=== PATIENT | female | born 1980 | race Caucasian/White ===

== ENCOUNTER 2019-04-01 13:25 | Emergency (ER) | payer BC ==
[2019-04-01 13:49] VITALS: BP 160/91; PULSE 102
[2019-04-01] MEDS ORDERED: Sodium Chloride 0.9% 10 ML Syringe FLUSH PRN ×2 (13:51→15:35)
[2019-04-01] MEDS ORDERED: Diatrizoate Meglumine/Diatrizoate Sodium 37% 120 ML Bottle PO ONE (15:35)
[2019-04-01] MEDS ORDERED: Iopamidol 612 MG/ML 100 ML Bottle IVPUSH ONE (15:35)
--- NOTE | 2019-04-01 15:37 | EDM.PDOC ---
ED HPI GENERAL MEDICAL PROBLEM - General Chief Complaint: Abdominal Pain Stated Complaint: LOW ABDOMINAL PAIN, HBP,HIGH PULSE SENT BY HERNANDEZ Time Seen by Provider: 04/01/19 13:29 Source of Information: Reports: Patient History Limitations: Reports: No Limitations - History of Present Illness INITIAL COMMENTS - FREE TEXT/NARRATIVE: The patient presents from the walk in clinic for generalized abdominal pain. This has been an ongoing problem for a couple of months. She also has been fatigued. She saw her doctor for this and she had an EGD done on the 16 of March. Everything with that looked good. She woke up this morning with more pain and it is in the RLQ. She also had a temp of 101. She also had some hematuria. She has nausea at times. She has no fever or chills. She has no cough, congestion, or runny nose. She has no chest pain or shortness of breath. She still has her gallbladder and appendix. She did have a hysterectomy a few years ago. She still has her ovaries. She has no dysuria. She had labs and a UA done at [place] and she was sent here for a CT of her abdomen and pelvis. Onset: Gradual Duration: Week(s): Location: Reports: Abdomen Quality: Reports: Sharp Severity: Moderate Improves with: Reports: None Worsens with: Reports: None Associated Symptoms: Reports: Nausea/Vomiting. Denies: Chest Pain, Cough, Fever /Chills, Headaches, Shortness of Breath Bilateral Abdomen Pain Score (Numeric/FACES): 4 - Related Data Allergies Allergy/AdvReac Type Severity Reaction Status Date / Time No Known Allergies Allergy Verified 06/05/16 22:44 Home Meds: Home Meds Cholecalciferol (Vitamin D3) [Vitamin D] 2 tab PO DAILY 06/05/16 [History] Acetaminophen [Tylenol] 1 - 2 tab PO ASDIRECTED PRN 06/06/16 [History] L.acidoph,Paracasei, B.lactis [Probiotic] 1 cap PO DAILY 06/06/16 [History] Albuterol [Ventolin HFA] 2 puff INH Q4H PRN 04/01/19 [History] Cetirizine HCl [Allergy Relief] 10 mg PO DAILY PRN 04/01/19 [History] Hydrocodone/Acetaminophen [Hydrocodon-Acetaminophen 5-325] 1 - 2 each PO Q6HR PRN #20 tablet 04/01/19 [Rx] Progesterone, Micronized [Progesterone] 100 mg PO ASDIRECTED 04/01/19 [History] Pseudoephedrine [Sudogest] 30 mg PO Q4HR PRN 04/01/19 [History] Past Medical History HEENT History: Reports: Allergic Rhinitis, Other (See Below) - Past Surgical History HEENT Surgical History: Reports: Adenoidectomy, Oral Surgery, Tonsillectomy GI Surgical History: Reports: EGD Female Surgical History: Reports: Hysterectomy Social & Family History - Family History Family Medical History: Noncontributory - Tobacco Use Smoking Status *Q: Never Smoker Second Hand Smoke Exposure: No - Caffeine Use Caffeine Use: Reports: Coffee Other Caffeine Use: rarely - Recreational Drug Use Recreational Drug Use: No - Living Situation & Occupation Living situation: Reports: Single, Alone Occupation: Employed ED ROS GENERAL - Review of Systems Review Of Systems: See Below Constitutional: Reports: Fatigue. Denies: Fever, Chills HEENT: Reports: No Symptoms Respiratory: Reports: No Symptoms Cardiovascular: Reports: No Symptoms Endocrine: Reports: No Symptoms GI/Abdominal: Reports: Abdominal Pain, Nausea. Denies: Diarrhea, Vomiting : Reports: No Symptoms ED EXAM, GI/ABD - Physical Exam Exam: See Below Exam Limited By: No Limitations General Appearance: Alert, No Apparent Distress Ears: Normal External Exam Nose: Normal Inspection Head: Atraumatic, Normocephalic Neck: Normal Inspection Respiratory/Chest: No Respiratory Distress, Lungs Clear, Normal Breath Sounds Cardiovascular: Regular Rate, Rhythm, No Edema, No Murmur GI/Abdominal Exam: Soft, No Organomegaly, No Mass, Tender (Moderate generalized tenderness) Extremities: Normal Inspection Neurological: Alert, Oriented, No Motor/Sensory Deficits Course - Vital Signs Last Recorded V/S: Last Vital Signs Temp 99 F 04/01/19 13:34 Pulse 102 H 04/01/19 13:34 Resp 18 04/01/19 13:34 BP 160/91 H 04/01/19 13:34 Pulse Ox 94 L 04/01/19 13:34 - Orders/Labs/Meds Orders: Active Orders 24 hr Category Date Time Status Peripheral IV Care [RC] . DIRECTED Care 04/01/19 13:51 Active Abdomen Pelvis w Cont [CT] Stat Exams 04/01/19 13:51 Taken Sodium Chloride 0.9% [Saline Flush] Med 04/01/19 13:51 Active 10 ml FLUSH ASDIRECTED PRN Sodium Chloride 0.9% [Saline Flush] Med 04/01/19 15:35 Active 10 ml FLUSH ONETIME PRN Durable Medical Equipment for Discharge [DME for Oth 04/01/19 16:06 Ordered Discharge] [COMM] Stat Peripheral IV Insertion Adult [OM.PC] Routine Oth 04/01/19 13:51 Ordered Medication Orders Sodium Chloride (Saline Flush) 10 ml FLUSH ASDIRECTED PRN PRN Reason: Keep Vein Open Last Admin: 04/01/19 14:03 Dose: 10 ml Sodium Chloride (Saline Flush) 10 ml FLUSH ONETIME PRN PRN Reason: IV FLUSH Last Admin: 04/01/19 15:48 Dose: 10 ml Meds: Medications Generic Name Dose Route Start Last Admin Trade Name Freq PRN Reason Stop Dose Admin Sodium Chloride 10 ml 04/01/19 13:51 04/01/19 14:03 Saline Flush FLUSH 10 ml ASDIRECTED PRN Administration Keep Vein Open Sodium Chloride 10 ml 04/01/19 15:35 04/01/19 15:48 Saline Flush FLUSH 10 ml ONETIME PRN Administration IV FLUSH Discontinued Medications Generic Name Dose Route Start Last Admin Trade Name Freq PRN Reason Stop Dose Admin Diatrizoate Meglum/Diatrizoate Sod 120 ml 04/01/19 15:35 04/01/19 15:48 Gastrografin 37% PO 04/01/19 15:36 90 ml ONETIME ONE Administration Iopamidol 100 ml 04/01/19 15:35 04/01/19 15:48 Isovue-300 (61%) IVPUSH 04/01/19 15:36 100 ml ONETIME ONE Administration - Re-Assessments/Exams Free Text/Narrative Re-Assessment/Exam: 04/01/19 15:36 I ordered an IV saline lock and a CT of her abdomen and pelvis with IV and oral contrast. 04/01/19 17:30 Her WBC was slightly elevated at 11.6. Her CMP looks good. Her UA shows some blood but no UTI. Her CT came back and it shows free fluid in pelvis with associated right adnexal cystic focus of 5cm. Findings could represent recently ruptured hemorrhagic cyst. Incomplete assessment of appendix. I will have her follow up with Dr Robbins and give her something for pain. Departure - Departure Time of Disposition: 17:35 Disposition: Home, Self-Care 01 Condition: Good Clinical Impression: Right ovarian cyst - Discharge Information *PRESCRIPTION DRUG MONITORING PROGRAM REVIEWED*: No *COPY OF PRESCRIPTION DRUG MONITORING REPORT IN PATIENT KARLA: No Prescriptions: Hydrocodone/Acetaminophen [Hydrocodon-Acetaminophen 5-325] 1 - 2 each PO Q6HR PRN #20 tablet PRN Reason: Pain Referrals: Ute Jean Baptiste PA [Primary Care Provider] - 1 Week Anais Robbins MD [Physician] - 1 Week Forms: ED Department Discharge Additional Instructions: Take motrin or tylenol for pain. If that does not help, try the hydrocodone. Follow up with Dr Robbins this week. Please return if you are worse. - My Orders Last 24 Hours: My Active Orders 04/01/19 13:51 Peripheral IV Care [RC] . DIRECTED Abdomen Pelvis w Cont [CT] Stat Sodium Chloride 0.9% [Saline Flush] 10 ml FLUSH ASDIRECTED PRN Peripheral IV Insertion Adult [OM.PC] Routine 04/01/19 15:35 Sodium Chloride 0.9% [Saline Flush] 10 ml FLUSH ONETIME PRN 04/01/19 16:06 Durable Medical Equipment for Discharge [DME for Discharge] [COMM] Stat - Assessment/Plan Last 24 Hours: My Active Orders 04/01/19 13:51 Peripheral IV Care [RC] . DIRECTED Abdomen Pelvis w Cont [CT] Stat Sodium Chloride 0.9% [Saline Flush] 10 ml FLUSH ASDIRECTED PRN Peripheral IV Insertion Adult [OM.PC] Routine 04/01/19 15:35 Sodium Chloride 0.9% [Saline Flush] 10 ml FLUSH ONETIME PRN 04/01/19 16:06 Durable Medical Equipment for Discharge [DME for Discharge] [COMM] Stat
--- NOTE | 2019-04-02 09:12 | CT ---
CT abdomen and pelvis Technique: Multiple axial sections were obtained from above the dome of the diaphragm inferiorly through the pubic symphysis. Intravenous and oral contrast was utilized. Delayed images were also obtained from above the kidneys inferiorly through the pubic symphysis. Intravenous and oral contrast was utilized. Comparison: No prior abdominal imaging is available. Findings: Visualized lung bases show nothing acute. Liver contains no focal abnormality. Spleen appears within normal limits. Pancreas is within normal limits. Cyst noted within the right kidney measuring 2.7 cm. This cyst shows some calcifications but otherwise has normal Hounsfield unit measurements of fluid and is most likely benign. No additional abnormality is seen within the kidneys. Contrast is noted within both ureters. No ureteral dilatation or ureteral obstruction is seen. Pancreas appears within normal limits. Gallbladder contains no calcified gallstones. Aorta shows no aneurysm. No retroperitoneal adenopathy or mesenteric abnormalities are seen. Cyst noted within the right ovary measuring around 4.0 cm in size. There is some free fluid being noted within the pelvis most likely representing cyst leakage. No pelvic adenopathy is seen. Appendix is visualized and is felt to be normal. No inflammatory change is seen. No bowel dilatation is identified. Bone window settings were reviewed which showed no acute osseous abnormality. There is a hemangioma within T12 which is a benign lesion. Impression: 1. 4.0 cm cyst within the right ovary with free fluid within the pelvis most likely representing cyst leakage. Recommend follow-up pelvic ultrasound study in 3-4 months to make sure cyst disappears. 2. Other findings believed to be incidental as described above. No other acute finding is seen. Diagnostic code #3 This report was dictated in [place] Standard Time I agree with preliminary report issued by [employer] (ad report finalized on 04/01/19, 5:57 PM Central Time)
== END 2019-04-01 18:00 | disposition home or self-care (01) ==
LOC: JD.ED 13:25
DX: N83.201 Unspecified ovarian cyst, right side (principal)
CPT/HCPCS: 74177; 99284; Q9963; Q9967

== ENCOUNTER 2019-04-20 21:13 | Emergency (ER) | payer BC ==
[2019-04-20 21:32] VITALS: BP 146/108; PULSE 97
--- NOTE | 2019-04-20 22:15 | EDM.PDOC ---
ED HPI GENERAL MEDICAL PROBLEM - General Chief Complaint: Abdominal Pain Stated Complaint: ABDOMINAL PAIN Time Seen by Provider: 04/20/19 21:18 Source of Information: Reports: Patient History Limitations: Reports: No Limitations - History of Present Illness INITIAL COMMENTS - FREE TEXT/NARRATIVE: This is a 39-year-old female. Long history of generalized abdominal pain. Have a history of a hysterectomy secondary to very large fibroids that caused urinary retention. She recently had an EGD that was normal and a celiac biopsy was negative. She is generally fatigued and has been worked up and found to have a low vitamin D for which she takes vitamin D now. This morning apparently she felt a pop in her upper abdomen she was at work and she was having gastric pain and may be some right upper quadrant pain into her back. She is also having generalized abdominal pain and right lower quadrant pain where she was diagnosed with a right ovarian cyst that was leaking and this was found on April [address] scan. She thinks she has had some blood on her underwear possibly from her urine since she has had a hysterectomy and possibly a documented fever of 101 today. Due to the increasing generalized abdominal pain she comes to the ER for evaluation. She does complain of nausea but no vomiting she does not have any history of diarrhea or constipation. She has had no cough and no congestion. Treatments CASING BLOWER: Reports: Acetaminophen, NSAIDS Abdomen Pain Score (Numeric/FACES): 7 - Related Data Allergies Allergy/AdvReac Type Severity Reaction Status Date / Time No Known Allergies Allergy Verified 06/05/16 22:44 Home Meds: Home Meds Cholecalciferol (Vitamin D3) [Vitamin D] 2 tab PO DAILY 06/05/16 [History] Acetaminophen [Tylenol] 1 - 2 tab PO ASDIRECTED PRN 06/06/16 [History] L.acidoph,Paracasei, B.lactis [Probiotic] 1 cap PO DAILY 06/06/16 [History] Albuterol [Ventolin HFA] 2 puff INH Q4H PRN 04/01/19 [History] Cetirizine HCl [Allergy Relief] 10 mg PO DAILY PRN 04/01/19 [History] Hydrocodone/Acetaminophen [Hydrocodon-Acetaminophen 5-325] 1 - 2 each PO Q6HR PRN #20 tablet 04/01/19 [Rx] Progesterone, Micronized [Progesterone] 100 mg PO ASDIRECTED 04/01/19 [History] Pseudoephedrine [Sudogest] 30 mg PO Q4HR PRN 04/01/19 [History] Past Medical History HEENT History: Reports: Allergic Rhinitis, Other (See Below) 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) Other 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 History: cysts - Past Surgical History HEENT Surgical History: Reports: Adenoidectomy, Oral Surgery, Tonsillectomy GI Surgical History: Reports: EGD Female Surgical History: Reports: Hysterectomy Social & Family History - Family History Family Medical History: Noncontributory - Tobacco Use Smoking Status *Q: Never Smoker Second Hand Smoke Exposure: No - Caffeine Use Caffeine Use: Reports: Coffee Other Caffeine Use: rarely - Living Situation & Occupation Living situation: Reports: Single, Alone Occupation: Employed ED ROS GENERAL - Review of Systems Review Of Systems: See Below Constitutional: Reports: Fever. Denies: Chills HEENT: Reports: No Symptoms Respiratory: Denies: Shortness of Breath, Wheezing, Cough Cardiovascular: Reports: No Symptoms Endocrine: Reports: Fatigue GI/Abdominal: Reports: Abdominal Pain, Nausea. Denies: Constipation, Diarrhea, Vomiting : Reports: Other (possible blood in her urine) Musculoskeletal: Reports: No Symptoms Skin: Reports: No Symptoms Neurological: Reports: No Symptoms Psychiatric: Reports: No Symptoms Hematologic/Lymphatic: Reports: No Symptoms ED EXAM, GI/ABD - Physical Exam Exam: See Below Exam Limited By: No Limitations General Appearance: Alert, WD/WN, No Apparent Distress Eyes: Bilateral: Normal Appearance Ears: Normal External Exam Nose: Normal Inspection Throat/Mouth: Normal Inspection, Normal Lips, Normal Voice, No Airway Compromise Head: Normocephalic Neck: Supple Respiratory/Chest: No Respiratory Distress, Lungs Clear, Normal Breath Sounds Cardiovascular: Regular Rate, Rhythm, No Murmur GI/Abdominal Exam: Soft, Other (Bowel sounds are positive in all 4 quadrants, she is tender in the epigastric area as well as all over her abdomen but there is no rebound or peritoneal signs, she is also tender in the right lower quadrant but not excessively so) Back Exam: Full Range of Motion Extremities: Normal Inspection, Normal Range of Motion Neurological: Alert, Oriented, Other (Does not appear to be in acute distress or to have an acute abdomen) Psychiatric: Normal Affect, Normal Mood. No: Anxious, Tearful Skin Exam: Warm, Dry Course - Vital Signs Last Recorded V/S: Last Vital Signs Temp 98.1 F 04/20/19 21:23 Pulse 97 04/20/19 21:23 Resp 16 04/20/19 21:23 BP 146/108 H 04/20/19 21:23 Pulse Ox 96 04/20/19 21:23 - Orders/Labs/Meds Orders: Active Orders 24 hr Category Date Time Status Abdomen Ltd [US] Stat Exams 04/20/19 21:47 Taken Transvaginal Non OB [US] Stat Exams 04/20/19 21:49 Taken UA W/MICROSCOPIC [URIN] Stat Lab 04/21/19 00:43 Received Labs: Laboratory Tests 04/20/19 04/20/19 04/20/19 Range/Units 22:05 22:05 22:05 WBC 10.91 H (3.98-10.04) K/mm3 RBC 4.43 (3.98-5.22) M/mm3 Hgb 13.3 (11.2-15.7) gm/dl Hct 38.9 (34.1-44.9) % MCV 87.8 (79.4-94.8) fl MCH 30.0 (25.6-32.2) pg MCHC 34.2 (32.2-35.5) g/dl RDW Std Deviation 39.1 (36.4-46.3) fL Plt Count 330 (182-369) K/mm3 MPV 8.1 L (9.4-12.3) fl Neut % (Auto) 57.5 (34.0-71.1) % Lymph % (Auto) 31.2 (19.3-51.7) % [place] % (Auto) 10.0 (4.7-12.5) % Eos % (Auto) 0.6 L (0.7-5.8) Baso % (Auto) 0.4 (0.1-1.2) % Neut # (Auto) 6.28 H (1.56-6.13) K/mm3 Lymph # (Auto) 3.40 (1.18-3.74) K/mm3 [place] # (Auto) 1.09 H (0.24-0.36) K/mm3 Eos # (Auto) 0.07 (0.04-0.36) K/mm3 Baso # (Auto) 0.04 (0.01-0.08) K/mm3 Manual Slide Review Normal smear Sodium 140 (136-145) mEq/L Potassium 3.4 L (3.5-5.1) mEq/L Chloride 107 (98-107) mEq/L Carbon Dioxide 23 (21-32) mEq/L Anion Gap 13.4 (5-15) BUN 6 L (7-18) mg/dL Creatinine 0.7 (0.55-1.02) mg/dL Est Cr Clr Drug Dosing 111.00 mL/min Estimated GFR (MDRD) > 60 (>60) mL/min BUN/Creatinine Ratio 8.6 L (14-18) Glucose 104 (74-106) mg/dL Lactic Acid 0.8 (0.4-2.0) mmol/L Calcium 8.8 (8.5-10.1) mg/dL Total Bilirubin 0.4 (0.2-1.0) mg/dL AST 10 L (15-37) U/L ALT 20 (14-59) U/L Alkaline Phosphatase 52 (46-116) U/L C-Reactive Protein < 0.2 (<1.0) mg/dL Total Protein 6.9 (6.4-8.2) g/dl Albumin 3.9 (3.4-5.0) g/dl Globulin 3.0 gm/dL Albumin/Globulin Ratio 1.3 (1-2) Lipase 78 (73-393) U/L Urine Color (Yellow) Urine Appearance (Clear) Urine pH (5.0-8.0) Ur Specific [place] (1.005-1.030) Urine Protein (Negative) Urine Glucose (UA) (Negative) Urine Ketones (Negative) Urine Occult Blood (Negative) Urine Nitrite (Negative) Urine Bilirubin (Negative) Urine Urobilinogen (0.2-1.0) Ur Leukocyte Esterase (Negative) Urine RBC (0-5) /hpf Urine WBC (0-5) /hpf Ur Epithelial Cells (0-5) /hpf Urine Bacteria (FEW) /hpf Urine Mucus (FEW) /hpf 04/21/19 Range/Units 00:43 WBC (3.98-10.04) K/mm3 RBC (3.98-5.22) M/mm3 Hgb (11.2-15.7) gm/dl Hct (34.1-44.9) % MCV (79.4-94.8) fl MCH (25.6-32.2) pg MCHC (32.2-35.5) g/dl RDW Std Deviation (36.4-46.3) fL Plt Count (182-369) K/mm3 MPV (9.4-12.3) fl Neut % (Auto) (34.0-71.1) % Lymph % (Auto) (19.3-51.7) % [place] % (Auto) (4.7-12.5) % Eos % (Auto) (0.7-5.8) Baso % (Auto) (0.1-1.2) % Neut # (Auto) (1.56-6.13) K/mm3 Lymph # (Auto) (1.18-3.74) K/mm3 [place] # (Auto) (0.24-0.36) K/mm3 Eos # (Auto) (0.04-0.36) K/mm3 Baso # (Auto) (0.01-0.08) K/mm3 Manual Slide Review Sodium (136-145) mEq/L Potassium (3.5-5.1) mEq/L Chloride (98-107) mEq/L Carbon Dioxide (21-32) mEq/L Anion Gap (5-15) BUN (7-18) mg/dL Creatinine (0.55-1.02) mg/dL Est Cr Clr Drug Dosing mL/min Estimated GFR (MDRD) (>60) mL/min BUN/Creatinine Ratio (14-18) Glucose (74-106) mg/dL Lactic Acid (0.4-2.0) mmol/L Calcium (8.5-10.1) mg/dL Total Bilirubin (0.2-1.0) mg/dL AST (15-37) U/L ALT (14-59) U/L Alkaline Phosphatase (46-116) U/L C-Reactive Protein (<1.0) mg/dL Total Protein (6.4-8.2) g/dl Albumin (3.4-5.0) g/dl Globulin gm/dL Albumin/Globulin Ratio (1-2) Lipase (73-393) U/L Urine Color Yellow (Yellow) Urine Appearance Slt cloudy H (Clear) Urine pH 7.0 (5.0-8.0) Ur Specific [place] 1.025 (1.005-1.030) Urine Protein Negative (Negative) Urine Glucose (UA) Negative (Negative) Urine Ketones 2+ H (Negative) Urine Occult Blood 1+ H (Negative) Urine Nitrite Negative (Negative) Urine Bilirubin Negative (Negative) Urine Urobilinogen 0.2 (0.2-1.0) Ur Leukocyte Esterase Negative (Negative) Urine RBC 0-5 (0-5) /hpf Urine WBC 0-5 (0-5) /hpf Ur Epithelial Cells 0-5 (0-5) /hpf Urine Bacteria Not seen (FEW) /hpf Urine Mucus Few (FEW) /hpf - Radiology Interpretation Free Text/Narrative:: Ultrasound of the upper abdomen suggest sludge in the gallbladder otherwise it is normal Ultrasound of the lower abdomen shows a involuting corpus luteum cyst that previous cyst seen on CT scan on the first of this month at 4 cm is probably this corpus luteum cyst resolving since it does not have any measurements blood flow was good and there is no other acute findings - Re-Assessments/Exams Free Text/Narrative Re-Assessment/Exam: 04/20/19 23:47 Spoke to the patient regarding the gallbladder and the corpus luteum cyst. I indicated her white count is 10 and normal her lactic acid is 0.8 and normal her C-reactive protein is less than 0.2 and her lipase is 78. I believe that the right ovarian cyst is resolving and it might have leaked into her abdomen. I also believe she needs a HIDA scan to determine if she has a diseased gallbladder. 04/21/19 02:07 To the patient regarding her negative urine. I have encouraged her to follow- up with her doctor for ordering of the HIDA scan and continue monitoring of her ovarian cyst. Departure - Departure Time of Disposition: 02:08 Disposition: Home, Self-Care 01 Condition: Fair Clinical Impression: Bladder disease, Ovarian cyst, right Abdominal pain Qualifiers: Abdominal location: generalized Qualified Code(s): R10.84 - Generalized abdominal pain - Discharge Information *PRESCRIPTION DRUG MONITORING PROGRAM REVIEWED*: Not Applicable *COPY OF PRESCRIPTION DRUG MONITORING REPORT IN PATIENT KARLA: Not Applicable Instructions: Ovarian Cyst, [id number] Referrals: Anais Robbins MD [Primary Care Provider] - Forms: ED Department Discharge, ED Return to Work/School Form Additional Instructions: Follow-up with your doctor this week, I will place you on restricted duty over this next week and your doctor can continue it if needed, you need to get a HIDA scan of your gallbladder to see if it is malfunctioning, you need recheck for that ovarian cyst since it seems to be resolving though it could have leaked and gotten smaller, rest and sleep as much as possible, gentle activity, return to the ER as needed Sepsis Event Note - Evaluation Sepsis Screening Result: No Definite Risk - Focused Exam Vital Signs: Vital Signs Temp Pulse Resp BP Pulse Ox 04/20/19 21:23 98.1 F 97 16 146/108 H 96 Date Exam was Performed: 04/21/19 Time Exam was Performed: 02:07 - My Orders Last 24 Hours: My Active Orders 04/20/19 21:47 Abdomen Ltd [US] Stat 04/20/19 21:49 Transvaginal Non OB [US] Stat 04/21/19 00:43 UA W/MICROSCOPIC [URIN] Stat - Assessment/Plan Last 24 Hours: My Active Orders 04/20/19 21:47 Abdomen Ltd [US] Stat 04/20/19 21:49 Transvaginal Non OB [US] Stat 04/21/19 00:43 UA W/MICROSCOPIC [URIN] Stat
--- NOTE | 2019-04-22 09:29 | US ---
Pelvic ultrasound: Multiple real-time images were obtained transabdominally. Comparison: Previous CT abdomen and pelvis study of 04/01/19. There is a hypoechoic area within the right ovary measuring 1.9 cm which is believed to represent a resolving hemorrhagic cyst. This has diminished in size from previous CT exam. Left ovary is within normal limits. Previous hysterectomy is noted. No free fluid is seen. Measurements: Right ovary: 3.3 x 2.6 x 1.5 cm Left ovary: 4.1 x 4.0 x 2.5 cm Impression: 1. Resolving cyst within the right ovary which is now felt to be incidental. 2. Previous hysterectomy. 3. Nothing acute seen on pelvic ultrasound exam. Diagnostic code #2 This report was dictated in [place] Standard Time I agree with preliminary report from [facility], finalized on 04/21/19, 12:09 AM Central Time
--- NOTE | 2019-04-22 09:29 | US ---
Limited abdominal ultrasound: Multiple real-time images were obtained of the upper right abdomen. Comparison: Previous CT abdomen and pelvis study of 04/01/19. Pancreas appears within normal limits. Liver shows no focal abnormality. Gallbladder shows no shadowing gallstones. Possible minimal sludge within the gallbladder which is felt to be incidental. No gallbladder wall thickening or biliary duct dilatation. Impression: 1. Minimal sludge within the gallbladder which is believed to be incidental. 2. Other portions of the right upper quadrant abdominal ultrasound are unremarkable. Diagnostic code #2 This report was dictated in [place] Standard Time I agree with preliminary report from [facility], finalized on 04/21/19, 12:07 AM Central Time
== END 2019-04-21 02:22 | disposition home or self-care (01) ==
LOC: JD.ED 21:13
DX: N83.201 Unspecified ovarian cyst, right side (principal); N32.9 Bladder disorder, unspecified; Z98.890 Other specified postprocedural states; Z90.710 Acquired absence of both cervix and uterus; Z79.899 Other long term (current) drug therapy
CPT/HCPCS: 36415; 76705; 76705-26; 76830; 76830-26; 80053; 81001; 83605; 83690; 85025; 86140; 99284-25

== ENCOUNTER 2019-05-06 10:39 | Emergency (ER) | payer BC, SELFPAY ==
[2019-05-06] MEDS ORDERED: Sodium Chloride 0.9% 1,000 ML IV STA (11:03)
[2019-05-06] MEDS ORDERED: Sodium Chloride 0.9% 10 ML Syringe FLUSH PRN (11:03)
[2019-05-06] MEDS ORDERED: Metoclopramide 10 MG/2 ML SDV IVPUSH ONE (11:03)
--- NOTE | 2019-05-06 12:29 | EDM.PDOC ---
ED HPI GENERAL MEDICAL PROBLEM - General Chief Complaint: Abdominal Pain Stated Complaint: ABD PAIN/ NAUSEA SENT FROM [place] Time Seen by Provider: 05/06/19 10:46 Source of Information: Reports: Patient History Limitations: Reports: No Limitations - History of Present Illness INITIAL COMMENTS - FREE TEXT/NARRATIVE: The patient presents with upper abdominal pain, nausea and vomiting. This has been an ongoing problem for a few weeks She had an ovarian cyst and then she has had trouble with her gallbladder. She had an US and there is slug. She saw Dr Perla and she ordered a HIDA scan on Tuesday. She will then see Dr Perla again on Tuesday. She is very limited what she can eat because it causes the pain. Onset: Gradual Duration: Week(s): Location: Reports: Abdomen Quality: Reports: Sharp Severity: Moderate Improves with: Reports: None Worsens with: Reports: None Associated Symptoms: Reports: Nausea/Vomiting. Denies: Chest Pain, Cough, Fever /Chills, Headaches, Shortness of Breath Right Upper Abdomen Pain Score (Numeric/FACES): 8 - Related Data Allergies Allergy/AdvReac Type Severity Reaction Status Date / Time No Known Allergies Allergy Verified 06/05/16 22:44 Home Meds: Home Meds Cholecalciferol (Vitamin D3) [Vitamin D] 2 tab PO DAILY 06/05/16 [History] Acetaminophen [Tylenol] 1 - 2 tab PO ASDIRECTED PRN 06/06/16 [History] L.acidoph,Paracasei, B.lactis [Probiotic] 1 cap PO DAILY 06/06/16 [History] Albuterol [Ventolin HFA] 2 puff INH Q4H PRN 04/01/19 [History] Cetirizine HCl [Allergy Relief] 10 mg PO DAILY PRN 04/01/19 [History] Hydrocodone/Acetaminophen [Hydrocodon-Acetaminophen 5-325] 1 - 2 each PO Q6HR PRN #20 tablet 04/01/19 [Rx] Pseudoephedrine [Sudogest] 30 mg PO Q4HR PRN 04/01/19 [History] Metoclopramide HCl [Reglan] 10 mg PO Q6H PRN #30 tablet 05/06/19 [Rx] Past Medical History HEENT History: Reports: Allergic Rhinitis, Other (See Below) 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 - Past Surgical History HEENT Surgical History: Reports: Adenoidectomy, Oral Surgery, Tonsillectomy GI Surgical History: Reports: EGD Female Surgical History: Reports: Hysterectomy Social & Family History - Family History Family Medical History: Noncontributory - Tobacco Use Smoking Status *Q: Never Smoker - Caffeine Use Caffeine Use: Reports: None Other Caffeine Use: rarely - Recreational Drug Use Recreational Drug Use: No - Living Situation & Occupation Living situation: Reports: Single, Alone Occupation: Employed ED ROS GENERAL - Review of Systems Review Of Systems: See Below Constitutional: Reports: No Symptoms HEENT: Reports: No Symptoms Respiratory: Reports: No Symptoms Cardiovascular: Reports: No Symptoms Endocrine: Reports: No Symptoms GI/Abdominal: Reports: Abdominal Pain, Nausea, Vomiting. Denies: Diarrhea : Reports: No Symptoms Musculoskeletal: Reports: No Symptoms ED EXAM, GI/ABD - Physical Exam Exam: See Below Exam Limited By: No Limitations General Appearance: Alert, No Apparent Distress Ears: Normal External Exam Nose: Normal Inspection Head: Atraumatic, Normocephalic Neck: Normal Inspection, Supple, Non-Tender Respiratory/Chest: No Respiratory Distress, Lungs Clear, Normal Breath Sounds Cardiovascular: Regular Rate, Rhythm, No Edema, No Murmur GI/Abdominal Exam: Soft, No Organomegaly, No Mass, Tender (Moderate tenderness to the RUQ) Course - Vital Signs Last Recorded V/S: Last Vital Signs Temp 97.9 F 05/06/19 10:46 Pulse 95 05/06/19 10:46 Resp 13 05/06/19 10:46 BP 151/90 H 05/06/19 10:46 Pulse Ox 99 05/06/19 10:46 - Orders/Labs/Meds Orders: Active Orders 24 hr Category Date Time Status Peripheral IV Care [RC] . DIRECTED Care 05/06/19 11:03 Active Sodium Chloride 0.9% [Saline Flush] Med 05/06/19 11:03 Active 10 ml FLUSH ASDIRECTED PRN ED Antiemetic Medication Reflex [OM.PC] Stat Oth 05/06/19 11:03 Ordered Peripheral IV Insertion Adult [OM.PC] Stat Oth 05/06/19 11:03 Ordered Medication Orders Sodium Chloride (Saline Flush) 10 ml FLUSH ASDIRECTED PRN PRN Reason: Keep Vein Open Last Admin: 05/06/19 11:16 Dose: 10 ml Labs: Laboratory Tests 05/06/19 05/06/19 Range/Units 10:50 10:50 WBC 9.44 (3.98-10.04) K/mm3 RBC 4.75 (3.98-5.22) M/mm3 Hgb 14.3 (11.2-15.7) gm/dl Hct 40.8 (34.1-44.9) % MCV 85.9 (79.4-94.8) fl MCH 30.1 (25.6-32.2) pg MCHC 35.0 (32.2-35.5) g/dl RDW Std Deviation 37.3 (36.4-46.3) fL Plt Count 344 (182-369) K/mm3 MPV 8.2 L (9.4-12.3) fl Neut % (Auto) 72.4 H (34.0-71.1) % Lymph % (Auto) 20.0 (19.3-51.7) % [place] % (Auto) 6.7 (4.7-12.5) % Eos % (Auto) 0.6 L (0.7-5.8) Baso % (Auto) 0.2 (0.1-1.2) % Neut # (Auto) 6.83 H (1.56-6.13) K/mm3 Lymph # (Auto) 1.89 (1.18-3.74) K/mm3 [place] # (Auto) 0.63 H (0.24-0.36) K/mm3 Eos # (Auto) 0.06 (0.04-0.36) K/mm3 Baso # (Auto) 0.02 (0.01-0.08) K/mm3 Sodium 142 (136-145) mEq/L Potassium 3.4 L (3.5-5.1) mEq/L Chloride 103 (98-107) mEq/L Carbon Dioxide 25 (21-32) mEq/L Anion Gap 17.4 H (5-15) BUN 6 L (7-18) mg/dL Creatinine 0.7 (0.55-1.02) mg/dL Est Cr Clr Drug Dosing 111.00 mL/min Estimated GFR (MDRD) > 60 (>60) mL/min BUN/Creatinine Ratio 8.6 L (14-18) Glucose 93 (74-106) mg/dL Calcium 8.7 (8.5-10.1) mg/dL Total Bilirubin 0.7 (0.2-1.0) mg/dL AST 12 L (15-37) U/L ALT 20 (14-59) U/L Alkaline Phosphatase 59 (46-116) U/L Total Protein 7.7 (6.4-8.2) g/dl Albumin 4.4 (3.4-5.0) g/dl Globulin 3.3 gm/dL Albumin/Globulin Ratio 1.3 (1-2) Lipase 74 (73-393) U/L Meds: Medications Generic Name Dose Route Start Last Admin Trade Name Freq PRN Reason Stop Dose Admin Sodium Chloride 10 ml 05/06/19 11:03 05/06/19 11:16 Saline Flush FLUSH 10 ml ASDIRECTED PRN Administration Keep Vein Open Discontinued Medications Generic Name Dose Route Start Last Admin Trade Name Freq PRN Reason Stop Dose Admin Sodium Chloride 1,000 mls @ 1,000 mls/hr 05/06/19 11:03 05/06/19 11:15 Normal Saline IV 05/06/19 12:02 1,000 mls/hr .BOLUS STA Administration Metoclopramide HCl 10 mg 05/06/19 11:03 05/06/19 11:16 Reglan IVPUSH 05/06/19 11:04 10 mg ONETIME ONE Administration - Re-Assessments/Exams Free Text/Narrative Re-Assessment/Exam: 05/06/19 12:28 I ordered an IV NS 1L bolus, reglan 10mg IV and labs. I did a bedside US and there was some possible sludge but no stones and no dilatation. Her labs look good. The reglan helped nd she would like to try that. She will keep her appointments with Dr Perla. Departure - Departure Time of Disposition: 12:30 Disposition: Home, Self-Care 01 Condition: Good Clinical Impression: Abdominal pain Qualifiers: Abdominal location: right upper quadrant Qualified Code(s): R10.11 - Right upper quadrant pain - Discharge Information *PRESCRIPTION DRUG MONITORING PROGRAM REVIEWED*: Not Applicable *COPY OF PRESCRIPTION DRUG MONITORING REPORT IN PATIENT KARLA: Not Applicable Prescriptions: Metoclopramide HCl [Reglan] 10 mg PO Q6H PRN #30 tablet PRN Reason: Nausea/Vomiting Referrals: Ute Jean Baptiste PA [Primary Care Provider] - Sepsis Event Note - Evaluation Sepsis Screening Result: No Definite Risk - Focused Exam Vital Signs: Vital Signs Temp Pulse Resp BP Pulse Ox 05/06/19 10:46 97.9 F 95 13 151/90 H 99 Date Exam was Performed: 05/06/19 Time Exam was Performed: 12:24 - My Orders Last 24 Hours: My Active Orders 05/06/19 11:03 Peripheral IV Care [RC] . DIRECTED Sodium Chloride 0.9% [Saline Flush] 10 ml FLUSH ASDIRECTED PRN ED Antiemetic Medication Reflex [OM.PC] Stat Peripheral IV Insertion Adult [OM.PC] Stat - Assessment/Plan Last 24 Hours: My Active Orders 05/06/19 11:03 Peripheral IV Care [RC] . DIRECTED Sodium Chloride 0.9% [Saline Flush] 10 ml FLUSH ASDIRECTED PRN ED Antiemetic Medication Reflex [OM.PC] Stat Peripheral IV Insertion Adult [OM.PC] Stat
[2019-05-06 12:32] VITALS: BP 120/71; PULSE 68
== END 2019-05-06 12:37 | disposition home or self-care (01) ==
LOC: JD.ED 10:39
DX: R10.11 Right upper quadrant pain (principal)
CPT/HCPCS: 36415; 80053; 83690; 85025; 96361; 96374; 99284; J2765; J7030; 99283